=== PATIENT | female | born 1995 | race Caucasian/White ===

== ENCOUNTER 2017-07-17 20:38 | Emergency (ER) | payer MEDICAID ==
[~2017-07-17] VITALS: Ht 167.6 cm; Wt 100.3 kg
[~2017-07-17 20:38] MED LIST: FLUO20CA19 PO; HYDR25TA11 PO; IBUP-1223 PO; LEVO1TBD PO
[2017-07-17 20:40] VITALS: BP 152/88
== END 2017-07-17 21:26 | disposition home or self-care (01) ==
LOC: ED 21:20
DX: J02.0 Streptococcal pharyngitis (principal)
CPT/HCPCS: 99283

== ENCOUNTER 2018-03-29 11:39 | Emergency (ER) | payer SELFPAY ==
[~2018-03-29] VITALS: Ht 167.6 cm; Wt 98.8 kg
[2018-03-29 11:52] VITALS: BP 139/92
== END 2018-03-29 13:34 | disposition home or self-care (01) ==
LOC: ED 13:25
DX: M79.672 Pain in left foot (principal); M79.671 Pain in right foot; Z88.1 Allergy status to other antibiotic agents; Z88.6 Allergy status to analgesic agent
CPT/HCPCS: 82962; 99284

== ENCOUNTER 2018-11-21 15:12 | Emergency (ER) | payer SELFPAY ==
[~2018-11-21] VITALS: Ht 167.6 cm; Wt 102.5 kg
[2018-11-21 15:13] VITALS: BP 147/88
== END 2018-11-21 16:29 | disposition home or self-care (01) ==
LOC: ED 16:23
DX: R07.89 Other chest pain (principal); Z90.89 Acquired absence of other organs; Z88.1 Allergy status to other antibiotic agents; Z88.5 Allergy status to narcotic agent; V49.49XA Driver injured in collision with other motor vehicles in traffic accident, initial encounter; Y93.89 Activity, other specified; Y92.89 Other specified places as the place of occurrence of the external cause; Y99.8 Other external cause status
CPT/HCPCS: 99283